=== PATIENT | female | born 1995 | race Two or more races ===

== ENCOUNTER 2023-06-15 20:57 | Emergency (ER) | payer OTHER ==
[~2023-06-15] VITALS: Ht 160 cm; Wt 59.0 kg
[2023-06-15] MEDS ORDERED: KETOROLAC TROMETHAMINE 60 MG VIAL IM ONE (21:15)
[2023-06-15] MEDS ORDERED: 0.9 % SODIUM CHLORIDE 1,000 ML IV STA (21:17)
[2023-06-15 21:53] LABS: HEMATOCRIT 40.3 % (36.0-45.00); HEMOGLOBIN 14.4 g/dL (12.0-15.00); MEAN CELL VOLUME 93.5 fL (80.00-100.00); MEAN CORPUSCULAR HEMOGLOBIN 33.3 pg (27.00-32.0); MEAN CORPUSCULAR HGB CONC 35.6 g/dl (32.0-36.0); PLATELET COUNT 266 K/uL (150-450); RED BLOOD COUNT 4.31 M/uL (4.00-6.00); RED CELL DISTRIBUTION WIDTH 12.5 % (11.5-14.5)
[2023-06-15 22:07] LABS: CALCIUM 9.7 mg/dL (8.5-10.1); CREATININE SERUM 0.92 mg/dL (0.55-1.02); GFR 74.38; POTASSIUM 4.1 mEq/L (3.5-5.1)
[2023-06-15 23:27] LABS: PH,URINE 8.5 (5.0-8.0); URINE APPEARANCE Cloudy; URINE BILIRRUBIN Negative (NEGATIVE); URINE BLOOD Small; URINE COLOR Yellow; URINE GLUCOSE Negative (NEGATIVE); URINE LEUKOCYTE Small; URINE NITRATE Negative; URINE UROBILINOGEN 0.2 E.U./dl
[2023-06-15 23:30] LABS: URINE BACTERIA 5648.3 uL (0.0-1933); URINE EPITHELIAL CELLS 43.9 uL (0.0-38.8); URINE RBC 53.7 uL (0.0-20.8); URINE WBC 247.2 uL (0.0-23.2)
[2023-06-16 00:22] LABS: URINE PROTEIN 100 (NEGATIVE)
[2023-06-16] MEDS ORDERED: CEFTRIAXONE SODIUM 1,000 MG VIAL IV STA (02:28)
[2023-06-16] MEDS ORDERED: CEPHALEXIN500 M1 PO (02:33)
[2023-06-16] MEDS ORDERED: KETO10TA2 PO (02:33)
== END 2023-06-16 02:36 | disposition designated cancer center or children's hospital (05) ==
LOC: ER 20:57
PROVIDERS: Emergency Medicine
DX: N39.0 Urinary tract infection, site not specified (principal); R10.2 Pelvic and perineal pain; N83.209 Unspecified ovarian cyst, unspecified side